=== PATIENT | male | born 1980 | race Caucasian/White ===

== ENCOUNTER 2023-05-23 11:54 | Inpatient (IN) | payer BC ==
--- NOTE | 2023-05-23 12:38 | ED ---
Abdominal Pain HPI - General Chief Complaint: Abdominal Pain Stated Complaint: Abd Pain Time Seen by Provider: 05/23/23 12:07 Source: patient, RN notes reviewed Mode of arrival: ambulatory Limitations: no limitations - History of Present Illness Initial Comments: This is a 42-year-old presents emergency department with chief complaint of right-sided abdominal pain. Symptoms have been worsening over the last few days. Patient had decreased appetite no reported fever. Pain has significantly worsened in the right lower quadrant in which initially ibuprofen was helping. No dysuria no constipation but does complain of mild diarrhea. - Related Data Allergies Allergy/AdvReac Type Severity Reaction Status Date / Time azithromycin Allergy Nausea & Verified 05/23/23 12:14 Vomiting & Diarrhea Review of Systems ROS Statement: Those systems with pertinent positive or pertinent negative responses have been documented in the HPI. ROS Other: All systems not noted in ROS Statement are negative. Past Medical History Past Medical History: No Reported History History of Any Multi-Drug Resistant Organisms: None Reported Past Surgical History: No Surgical Hx Reported Past Psychological History: Anxiety Smoking Status: Never smoker Past Alcohol Use History: Occasional Past Drug Use History: None Reported General Exam Limitations: no limitations General appearance: alert, in no apparent distress Head exam: Present: atraumatic, normocephalic, normal inspection Eye exam: Present: normal appearance, PERRL, EOMI. Absent: scleral icterus, conjunctival injection, periorbital swelling ENT exam: Present: normal exam, mucous membranes moist Neck exam: Present: normal inspection. Absent: tenderness, meningismus, lymphadenopathy Respiratory exam: Present: normal lung sounds bilaterally. Absent: respiratory distress, wheezes, rales, rhonchi, stridor Cardiovascular Exam: Present: regular rate, normal rhythm, normal heart sounds. Absent: systolic murmur, diastolic murmur, rubs, gallop, clicks GI/Abdominal exam: Present: soft, tenderness (Right lower quadrant), normal bowel sounds. Absent: distended, guarding, rebound, rigid Course Vital Signs 05/23/23 12:08 Temperature 98.2 F Pulse Rate 93 Respiratory 18 Rate Blood Pressure 134/85 O2 Sat by Pulse 98 Oximetry Medical Decision Making - Medical Decision Making Was pt. sent in by a medical professional or institution (, PA, ACOUSTICAL INSTALLER, urgent care, hospital, or detention...) When possible be specific @ -No Did you speak to anyone other than the patient for history (EMS, parent, family, police, friend...)? What history was obtained from this source @ -No Did you review nursing and triage notes (agree or disagree)? Why? @ -I reviewed and agree with nursing and triage notes Were old charts reviewed (outside hosp., previous admission, EMS record, old EKG, old radiological studies, urgent care reports/EKG's, detention records)? Report findings @ -No old charts were reviewed Differential Diagnosis (chest pain, altered mental status, abdominal pain women, abdominal pain men, vaginal bleeding, weakness, fever, dyspnea, syncope, headache, dizziness, GI bleed, back pain, seizure, CVA, palpatations, mental hea lth, musculoskeletal)? @ -Differential Abdominal Pain Men: Appendicitis, cholecystitis, diverticulosis, ischemic bowel, pancreatitis, hepatitis, UTI, gastroenteritis, AAA, incarcerated hernia, bowel obstruction, constipation, inflammatory bowel, hepatitis, peptic ulcer disease, splenic infarction, perforated viscus, testicular torsion, this is not meant to be an all-inclusive list EKG interpreted by me (3pts min.). @ -As above X-rays interpreted by me (1pt min.). @ -None done CT interpreted by me (1pt min.). @ -CT abdomen pelvis shows ruptured appendicitis with abscess U/S interpreted by me (1pt. min.). @ -None done What testing was considered but not performed or refused? (CT, X-rays, U/S, labs)? Why? @ -None What meds were considered but not given or refused? Why? @ -None Did you discuss the management of the patient with other professionals (professionals i.e. , PA, ACOUSTICAL INSTALLER, lab, RT, psych nurse, social professionals, jack setter, teacher, penal officer, family independence case manager)? Give summary @ -Dr. benoit for admission in which he recommends IV antibiotics, possible IR, medicine consult Was smoking cessation discussed for >3mins.? @ -No Was critical care preformed (if so, how long)? @ -No Were there social determinants of health that impacted care today? How? (Homelessness, low income, unemployed, alcoholism, drug addiction, transportation, low edu. Level, literacy, decrease access to med. care, alf, rehab)? @ -No Was there de-escalation of care discussed even if they declined (Discuss DNR or withdrawal of care, Hospice)? DNR status @ -No What co-morbidities impacted this encounter? (DM, HTN, Smoking, COPD, CAD, Cancer, CVA, ARF, Chemo, Hep., AIDS, mental health diagnosis, sleep apnea, morb id obesity)? @ -None Was patient admitted / discharged? Hospital course, mention meds given and rout e, prescriptions, significant lab abnormalities, going to OR and other pertinent info. @ -Admitted patient has ruptured appendicitis patient was started on Zosyn, IV antibiotics were started, blood cultures were started. Patient will be admitted for further treatment Undiagnosed new problem with uncertain prognosis? @ -No Drug Therapy requiring intensive monitoring for toxicity (Heparin, Nitro, I nsulin, Cardizem)? @ -No Were any procedures done? @ -No Diagnosis/symptom? @ -Acute appendicitis with abscess Acute, or Chronic, or Acute on Chronic? @ -Acute Uncomplicated (without systemic symptoms) or Complicated (systemic symptoms)? @ -Complicated Side effects of treatment? @ -No Exacerbation, Progression, or Severe Exacerbation? @ -No Poses a threat to life or bodily function? How? (Chest pain, USA, OR, pneumonia, PE, COPD, DKA, ARF, appy, cholecystitis, CVA, Diverticulitis, Homicidal, Richa cidal, threat to staff... and all critical care pts) @ -Yes patient has surgical risk, appendicitis - Lab Data Result diagrams: 05/23/23 12:37 05/23/23 12:37 Lab Results 05/23/23 05/23/23 05/23/23 Range/Units 12:37 12:37 12:37 WBC 17.4 H (3.8-10.6) k/uL RBC 4.96 (4.30-5.90) m/uL Hgb 14.1 (13.0-17.5) gm/dL Hct 41.1 (39.0-53.0) % MCV 82.9 (80.0-100.0) fL MCH 28.4 (25.0-35.0) pg MCHC 34.2 (31.0-37.0) g/dL RDW 12.9 (11.5-15.5) % Plt Count 463 H (150-450) k/uL MPV 7.9 Neutrophils % 80 % Lymphocytes % 10 % Monocytes % 7 % Eosinophils % 1 % Basophils % 0 % Neutrophils # 13.9 H (1.3-7.7) k/uL Lymphocytes # 1.8 (1.0-4.8) k/uL Monocytes # 1.2 H (0-1.0) k/uL Eosinophils # 0.1 (0-0.7) k/uL Basophils # 0.1 (0-0.2) k/uL Sodium 138 (137-145) mmol/L Potassium 3.6 (3.5-5.1) mmol/L Chloride 106 (98-107) mmol/L Carbon Dioxide 16 L (22-30) mmol/L Anion Gap 16 mmol/L BUN 15 (9-20) mg/dL Creatinine 0.94 (0.66-1.25) mg/dL Est GFR (CKD-EPI)AfAm >90 (>60 ml/min/1.73 sqM) Est GFR (CKD-EPI)NonAf >90 (>60 ml/min/1.73 sqM) Glucose 96 (74-99) mg/dL Plasma Lactic Acid Mick 1.2 (0.7-2.0) mmol/L Calcium 9.2 (8.4-10.2) mg/dL Total Bilirubin 1.1 (0.2-1.3) mg/dL AST 39 (17-59) U/L ALT 93 H (4-49) U/L Alkaline Phosphatase 114 (38-126) U/L Total Protein 7.5 (6.3-8.2) g/dL Albumin 4.1 (3.5-5.0) g/dL Lipase 65 (23-300) U/L Disposition Clinical Impression: Appendicitis with abscess Disposition: ADMITTED IP TO THIS HOSP Condition: Fair Referrals: Precious Siegel MD [Primary Care Provider] - 1-2 days Time of Disposition: 13:36
[2023-05-23] MEDS: SODIUM CHLORIDE 0.9% 1,000 ML IV STA (12:42)
[2023-05-23] MEDS: SODIUM CHLORIDE 0.9% 500 ML 500 ML IV STA (12:42)
[2023-05-23] MEDS: KETOROLAC 15 MG/ML 1 ML VIAL IVP STA (12:43)
[2023-05-23 13:12] LABS: Basophils # (A) 0.1 k/uL (0-0.2); Basophils % (A) 0 %; Eosinophils # (A) 0.1 k/uL (0-0.7); Eosinophils % (A) 1 %; HCT 41.1 % (39.0-53.0); HGB 14.1 gm/dL (13.0-17.5); Lymphocytes # (A) 1.8 k/uL (1.0-4.8); Lymphocytes % (A) 10 %; MCH 28.4 pg (25.0-35.0); MCHC 34.2 g/dL (31.0-37.0); MCV 82.9 fL (80.0-100.0); Mean Platelet Volume 7.9; Monocytes # (A) 1.2 k/uL (0-1.0); Monocytes % (A) 7 %; Neutrophils # (A) 13.9 k/uL (1.3-7.7); Neutrophils % (A) 80 %; Platelet Count 463 k/uL (150-450); RBC 4.96 m/uL (4.30-5.90); RDW 12.9 % (11.5-15.5); WBC 17.4 k/uL (3.8-10.6)
[2023-05-23 13:32] LABS: ALT 93 U/L (4-49); AST 39 U/L (17-59); African American GFR (CKD) >90 (>60 ml/min/1.73 sqM); Albumin 4.1 g/dL (3.5-5.0); Alkaline Phosphatase 114 U/L (38-126); Anion Gap 16 mmol/L; Blood Urea Nitrogen 15 mg/dL (9-20); Calcium 9.2 mg/dL (8.4-10.2); Carbon Dioxide 16 mmol/L (22-30); Chloride 106 mmol/L (98-107); Glucose 96 mg/dL (74-99); Lipase 65 U/L (23-300); Non-African American GFR(CKD) >90 (>60 ml/min/1.73 sqM); Potassium 3.6 mmol/L (3.5-5.1); Sodium 138 mmol/L (137-145); Total Bilirubin 1.1 mg/dL (0.2-1.3); Total Protein 7.5 g/dL (6.3-8.2)
--- NOTE | 2023-05-23 13:38 | CT ---
EXAMINATION TYPE: CT abdomen pelvis w con CT DLP: 1750.7 mGycm, Automated exposure control for dose reduction was used. DATE OF EXAM: 05/23/2023 1:11 PM COMPARISON: None CLINICAL INDICATION: 42 years old with history of RLQ pain; RLQ pain TECHNIQUE: Axial CT abdomen pelvis w con;Sagittal and coronal reformats were created on a separate w orkstation. Contrast used:100 mL of Isovue 300 with IV Contrast, (none if empty) Oral contrast used: without Oral Contrast (none if empty) FINDINGS: LOWER CHEST: Unremarkable ABDOMEN LIVER: Unremarkable GALLBLADDER AND BILE DUCTS: Unremarkable. PANCREAS: Unremarkable. SPLEEN: Unremarkable. ADRENAL GLANDS: Unremarkable. KIDNEYS AND URETERS: No evidence of hydronephrosis or renal calculus. The ureters are unremarkable. PELVIS BLADDER: Unremarkable REPRODUCTIVE: Unremarkable. ABDOMEN & PELVIS STOMACH AND BOWEL: There is a dilated appendix measuring up to 12 mm with adjacent inflammation/fat s tranding changes in the general area. Fluid collection with gas fluid level immediately next the appe ndix measuring 46 x 41 mm. PERITONEUM/RETROPERITONEUM: No evidence of pneumoperitoneum or free fluid. VASCULATURE: No evidence of aortic aneurysm. MUSCULOSKELETAL: No acute osseous abnormalities LYMPH NODES: No gross evidence for lymphadenopathy. SOFT TISSUE/ABDOMINAL WALL: Unremarkable IMPRESSION: 1. Complicated/perforated acute appendicitis with retained feces collection next to the appendix lum en measuring 4.6 x 4.1 cm. 2. Colonic diverticulosis. Findings communicated to Dr. Jadiel Jaimes, PAC on 05/23/2023 1:[address] Roberto Cox.
[2023-05-23] MEDS ORDERED: HYDROmorphone 0.5 MG/0.5 ML SYRINGE IVP PRN (14:12)
[2023-05-23] MEDS ORDERED: NALOXONE 0.4 MG/ML 1 ML VIAL IV PRN (14:12)
[2023-05-23] MEDS ORDERED: HYDROcodone/APAP 5-325MG 1 EACH TAB PO PRN (14:12)
[2023-05-23] MEDS ORDERED: ONDANSETRON 4 MG/2 ML VIAL IVP PRN (14:12)
[2023-05-23] MEDS: PIPERACILLIN-TAZOBACTAM 3.375 GM in SODIUM CHLORIDE 0.9% 100 ML IVPB SCH (14:42)
[2023-05-23] MEDS: SODIUM CHLORIDE 0.9% 1,000 ML IV SCH (14:45)
--- NOTE | 2023-05-23 15:26 | P.GSHP ---
History of Present Illness H&P Date: 05/23/23 This is a 42-year-old presents emergency department with chief complaint of right-sided abdominal pain. Symptoms have been worsening over the last few days. Patient had decreased appetite no reported fever. Pain has significantly worsened in the right lower quadrant in which initially ibuprofen was helping. No dysuria no constipation but does complain of mild diarrhea. CT-AP shows perforated appendicitis with abscess. Review of Systems ROS Statement: Those systems with pertinent positive or pertinent negative responses have been documented in the HPI. ROS Other: All systems not noted in ROS Statement are negative. Past Medical History Past Medical History: No Reported History History of Any Multi-Drug Resistant Organisms: None Reported Past Surgical History: No Surgical Hx Reported Past Psychological History: Anxiety Smoking Status: Never smoker Past Alcohol Use History: Occasional Past Drug Use History: None Reported General Exam Limitations: no limitations General appearance: alert, in no apparent distress Head exam: Present: atraumatic, normocephalic, normal inspection Eye exam: Present: normal appearance, PERRL, EOMI. Absent: scleral icterus, conjunctival injection, periorbital swelling ENT exam: Present: normal exam, mucous membranes moist Neck exam: Present: normal inspection. Absent: tenderness, meningismus, lymphadenopathy Respiratory exam: Present: normal lung sounds bilaterally. Absent: respiratory distress, wheezes, rales, rhonchi, stridor Cardiovascular Exam: Present: regular rate, normal rhythm, normal heart sounds. Absent: systolic murmur, diastolic murmur, rubs, gallop, clicks GI/Abdominal exam: Present: soft, tenderness (Right lower quadrant), normal bowel sounds. Absent: distended, guarding, rebound, rigid 42 year old with perforated appendicitis with abscess -NPO -Zosyn -IR consult for drainage. Patient will need interval appendectomy -Pain and Nausea Control -Further recs to follow Past Medical History Past Medical History: No Reported History History of Any Multi-Drug Resistant Organisms: None Reported Past Surgical History: No Surgical Hx Reported Past Psychological History: Anxiety Smoking Status: Never smoker Past Alcohol Use History: Occasional Past Drug Use History: None Reported Medications and Allergies Allergies Allergy/AdvReac Type Severity Reaction Status Date / Time azithromycin Allergy Nausea & Verified 05/23/23 12:14 Vomiting & Diarrhea Surgical - Exam Vital Signs Temp Pulse Resp BP Pulse Ox 98.2 F 93 18 134/85 98 05/23/23 12:08 05/23/23 12:08 05/23/23 12:08 05/23/23 12:08 05/23/23 12:08 Results - Labs 05/23/23 12:37 05/23/23 12:37 Abnormal Lab Results - Last 24 Hours (Table) 05/23/23 05/23/23 Range/Units 12:37 12:37 WBC 17.4 H (3.8-10.6) k/uL Plt Count 463 H (150-450) k/uL Neutrophils # 13.9 H (1.3-7.7) k/uL Monocytes # 1.2 H (0-1.0) k/uL Carbon Dioxide 16 L (22-30) mmol/L ALT 93 H (4-49) U/L Diabetes panel 05/23/23 Range/Units 12:37 Sodium 138 (137-145) mmol/L Potassium 3.6 (3.5-5.1) mmol/L Chloride 106 (98-107) mmol/L Carbon Dioxide 16 L (22-30) mmol/L BUN 15 (9-20) mg/dL Creatinine 0.94 (0.66-1.25) mg/dL Glucose 96 (74-99) mg/dL Calcium 9.2 (8.4-10.2) mg/dL AST 39 (17-59) U/L ALT 93 H (4-49) U/L Alkaline Phosphatase 114 (38-126) U/L Total Protein 7.5 (6.3-8.2) g/dL Albumin 4.1 (3.5-5.0) g/dL Calcium panel 05/23/23 Range/Units 12:37 Calcium 9.2 (8.4-10.2) mg/dL Albumin 4.1 (3.5-5.0) g/dL Pituitary panel 05/23/23 Range/Units 12:37 Sodium 138 (137-145) mmol/L Potassium 3.6 (3.5-5.1) mmol/L Chloride 106 (98-107) mmol/L Carbon Dioxide 16 L (22-30) mmol/L BUN 15 (9-20) mg/dL Creatinine 0.94 (0.66-1.25) mg/dL Glucose 96 (74-99) mg/dL Calcium 9.2 (8.4-10.2) mg/dL Adrenal panel 05/23/23 Range/Units 12:37 Sodium 138 (137-145) mmol/L Potassium 3.6 (3.5-5.1) mmol/L Chloride 106 (98-107) mmol/L Carbon Dioxide 16 L (22-30) mmol/L BUN 15 (9-20) mg/dL Creatinine 0.94 (0.66-1.25) mg/dL Glucose 96 (74-99) mg/dL Calcium 9.2 (8.4-10.2) mg/dL Total Bilirubin 1.1 (0.2-1.3) mg/dL AST 39 (17-59) U/L ALT 93 H (4-49) U/L Alkaline Phosphatase 114 (38-126) U/L Total Protein 7.5 (6.3-8.2) g/dL Albumin 4.1 (3.5-5.0) g/dL
[2023-05-23 19:37] LABS: Appearance,Urine Cloudy (Clear); Bilirubin,Urine Negative (Negative); Blood,Urine Negative (Negative); Color,Urine Yellow; Glucose,Urine (UA) Negative (Negative); Ketones,Urine 1+ (Negative); Leukocyte Esterase,Urine Negative (Negative); Mucus,Urine Few /hpf; Nitrite,Urine Negative (Negative); Protein,Urine Trace (Negative); RBC,Urine 1 /hpf (0-5); Squamous Epithelial Cell,Urine 1 /hpf (0-4); WBC,Urine 3 /hpf (0-5)
[2023-05-23] MEDS: KETOROLAC 15 MG/ML 1 ML VIAL IVP PRN (19:43)
[2023-05-23 19:48] LABS: Specific Gravity,Urine >1.050 (1.001-1.035)
[2023-05-24] MEDS: busPIRone HCl 10 MG TAB PO SCH (10:07)
[2023-05-24] MEDS: TOPIRAMATE 25 MG TAB PO SCH (11:23)
--- NOTE | 2023-05-24 12:39 | P.CONS ---
History of Present Illness - Reason for Consult Consult date: 05/24/23 Medical Management Requesting physician: Jadiel Jaimes - History of Present Illness This is a pleasant 42-year-old transgender patient medical history significant for anxiety, never smoker. Patient is currently transitioning from male to female at home medications include estradiol patch as well as Aldactone and patient states also taking testosterone. Comes in for complaints of abdominal pain and discomfort ongoing since last Thursday. Pain is significant rated about a 9 out of 10 with abdominal tenderness and not tolerating much oral intake. Pain is in the right lower quadrant. patient does not have any fever or chills. Comes to the hospital for evaluation abdominal pelvis CT was taken showing a perforated appendix with abscess formation. Was admitted to general surgery with a consult placed to medicine. Surgery has evaluated patient recommending for possible drainage of the abscess with interventional radiology and consultation has been placed. Patient is and started on IV Zosyn empirically and further recommendations are pending from surgical services. Blood cell count was elevated at 17.4 on admission, sodium 138, potassium 3.6, BUN of 15, creatinine of 0.94. Urinalysis is not suggestive of any infection. REVIEW OF SYSTEMS: CONSTITUTIONAL: No fever, no malaise, no fatigue. HEENT: No recent visual problems or hearing problems. Denied any sore throat. CARDIOVASCULAR: No chest pain, orthopnea, PND, no palpitations, no syncope. PULMONARY: No shortness of breath, no cough, no hemoptysis. GASTROINTESTINAL: No diarrhea, no nausea, no vomiting, no abdominal pain. NEUROLOGICAL: No headaches, no weakness, no numbness. HEMATOLOGICAL: Denies any bleeding or petechiae. GENITOURINARY: Denies any burning micturition, frequency, or urgency. MUSCULOSKELETAL/RHEUMATOLOGICAL: Denies any joint pain, swelling, or any muscle pain. ENDOCRINE: Denies any polyuria or polydipsia. The rest of the 14-point review of systems is negative. PHYSICAL EXAMINATION: GENERAL: The patient is alert and oriented x3, not in any acute distress. Well developed, well nourished. HEENT: Pupils are round and equally reacting to light. EOMI. No scleral icterus. No conjunctival pallor. Normocephalic, atraumatic. No pharyngeal erythema. No thyromegaly. CARDIOVASCULAR: S1 and S2 present. No murmurs, rubs, or gallops. PULMONARY: Chest is clear to auscultation, no wheezing or crackles. ABDOMEN: Soft, nontender, nondistended, normoactive bowel sounds. No palpable organomegaly. MUSCULOSKELETAL: No joint swelling or deformity. EXTREMITIES: No cyanosis, clubbing, or pedal edema. NEUROLOGICAL: Gross neurological examination did not reveal any focal deficits. SKIN: No rashes. Assessment and Plan Ruptured appendix and sepsis with abscess formation pending consultation by IR for possible drainage of the abscess continues on IV Zosyn Leukocytosis secondary to above Transgender on hormone therapy, home medication have been resumed History of anxiety on Topamax and BuSpar which have been resumed GI prophylaxis Full Code Continue empiric antibiotic coverage blood culture has been taken and pending. IR consultation in place. General surgery following closely with further recommendations patient may require surgical intervention for the ruptured appendix. Continue supportive care patient is receiving IV Toradol for pain management states this is adequate and does not want the Dilaudid at this time. She does have Dilaudid 0.5 mg every 3 hours for breakthrough pain. Recommend to repeat labs in the morning. The impression and plan of care has been dictated by Latesha Burrell Nurse Practitioner as directed. Dr. Jose MD I have performed a history and physical examination and medical decision making of this patient, discussed the same with the dictator, and agree with the dictators assessment and plan as written, documented as a scribe. Based on total visit time, I have performed more than 50% of this visit. Past Medical History Past Medical History: No Reported History History of Any Multi-Drug Resistant Organisms: None Reported Past Surgical History: No Surgical Hx Reported Past Psychological History: Anxiety Smoking Status: Never smoker Past Alcohol Use History: Occasional Past Drug Use History: None Reported Medications and Allergies Home Medications Medication Instructions Recorded Confirmed Type Multivit with Calcium,Iron,Min 1 tab PO DAILY 05/23/23 05/23/23 History [Women's Multivitamin] Phentermine HCl [Adipex P] 15 mg PO DAILY 05/23/23 05/23/23 History Spironolactone [Aldactone] 100 mg PO DAILY 05/23/23 05/23/23 History Topiramate [Topamax] 25 mg PO BID 05/23/23 05/23/23 History busPIRone HCl [Buspar] 10 mg PO BID 05/23/23 05/23/23 History estradioL 2 mg PO DAILY 05/23/23 05/23/23 History estradioL [Jacki (Twice Weekly) 1 patch TRANSDERM TUFR 05/23/23 05/23/23 History 0.1 mg Patch] Allergies Allergy/AdvReac Type Severity Reaction Status Date / Time azithromycin Allergy Nausea & Verified 05/23/23 18:12 Vomiting & Diarrhea Physical Exam Vitals: Vital Signs Temp Pulse Pulse Resp BP BP Pulse Ox 05/24/23 07:52 98.6 F 87 19 110/75 96 05/24/23 02:00 99.4 F 94 16 97/58 98 05/23/23 20:00 99.7 F 82 16 99/63 100 05/23/23 16:00 98.7 F 81 18 109/70 98 05/23/23 14:50 98.2 F 81 16 120/80 98 05/23/23 12:08 98.2 F 93 18 134/85 98 Intake and Output 05/23/23 05/24/23 05/24/23 22:59 06:59 14:59 Intake Total 0 1000 Output Total 600 Balance -600 1000 Intake: Intake, IV Titration 1000 Amount Piperacillin-Tazobactam 3 100 .375 gm In Sodium Chloride 0.9% 100 ml @ 25 mls/hr IVPB Q8H [facility]LENA Rx#: [id number] Sodium Chloride 0.9% 1, 900 000 ml @ 75 mls/hr IV . [id number] [facility] ELENA Rx#:[id number] Oral 0 0 Output: Urine 600 Other: # Voids 2 1 Weight 120.656 kg Results CBC & Chem 7: 05/23/23 12:37 05/23/23 12:37 Labs: Abnormal Lab Results - Last 24 Hours (Table) 05/23/23 05/23/23 05/23/23 Range/Units 12:37 12:37 12:37 WBC 17.4 H (3.8-10.6) k/uL Plt Count 463 H (150-450) k/uL Neutrophils # 13.9 H (1.3-7.7) k/uL Monocytes # 1.2 H (0-1.0) k/uL Carbon Dioxide 16 L (22-30) mmol/L ALT 93 H (4-49) U/L Ur Specific [place] >1.050 H (1.001-1.035) Urine Protein Trace H (Negative) Urine Ketones 1+ H (Negative) Assessment and Plan Time with Patient: Less than 30
[2023-05-24] MEDS: MULTIVITAMINS, THERA 1 EACH TAB PO SCH (14:06)
[2023-05-24] MEDS: SPIRONOLACTONE 25 MG TAB PO SCH (14:06)
--- NOTE | 2023-05-24 15:40 | P.PN ---
Subjective Progress Note Date: 05/24/23 Julien is a 42-year-old transgender male to female who presents with lower abdominal pain from Thursday through Thursday. Patient presents with ruptured appendicitis with abscess. At this time, pending consultation for interventional radiology drainage. Complains of thirst. May have clear liquid diet. N.p.o. after midnight. Adjustment of medications for nonnarcotic pain management of Toradol scheduled. Tylenol scheduled. Dilaudid as needed. Interval appendectomy also described. Objective - Vital Signs Vital signs: Vital Signs Temp 100.1 F 05/24/23 14:18 Pulse 84 05/24/23 14:18 Resp 18 05/24/23 14:18 BP 106/67 05/24/23 14:18 Pulse Ox 97 05/24/23 14:18 FiO2 Intake & Output 05/23/23 05/24/23 05/24/23 18:59 06:59 18:59 Intake Total 0 1000 Output Total 600 Balance -600 1000 Weight 120.656 kg Intake: Intake, IV Titration 1000 Amount Piperacillin-Tazobactam 3 100 .375 gm In Sodium Chloride 0.9% 100 ml @ 25 mls/hr IVPB Q8H [facility] ELENA Rx#: [id number] Sodium Chloride 0.9% 1, 900 000 ml @ 75 mls/hr IV . [id number] [facility] ELE[facility] Rx#:[id number] Oral 0 0 Output: Urine 600 Other: # Voids 2 1 - Labs CBC & Chem 7: 05/23/23 12:37 05/23/23 12:37 Labs: Abnormal Lab Results - Last 24 Hours (Table) 05/23/23 Range/Units 12:37 Ur Specific [place] >1.050 H (1.001-1.035) Urine Protein Trace H (Negative) Urine Ketones 1+ H (Negative)
[2023-05-24] MEDS: KETOROLAC 15 MG/ML 1 ML VIAL IVP SCH (18:07)
[2023-05-24] MEDS: SODIUM CHLORIDE 0.9% 1,000 ML IV SCH (18:07)
[2023-05-24] MEDS: ACETAMINOPHEN TAB 500 MG TAB PO SCH (18:08)
[2023-05-25 08:29] LABS: HCT 38.2 % (37.2-50.0); HGB 12.8 g/dL (12.0-17.0); MCH 28.1 pg (27.0-32.0); MCHC 33.5 g/dL (32.0-37.0); MCV 83.8 FL (80.0-97.0); Mean Platelet Volume 9.9 FL (9.5-12.2); NRBC Per 100 WBC 0 X 10*3/uL (0.00-0.01); Platelet Count 465 X 10*3/uL (140-440); RBC 4.56 X 10*6/uL (4.10-5.60); RDW 13.2 % (11.5-14.5); WBC 17.29 X 10*3/uL (4.50-10.00)
[2023-05-25 08:30] LABS: Blood Urea Nitrogen 12.7 mg/dL (9.0-27.0); Calcium 8.4 mg/dL (8.7-10.3); Carbon Dioxide 19.5 mmol/L (21.6-31.8); Chloride 104 mmol/L (96-109); Glucose 92 mg/dL (70-110); Potassium 3.8 mmol/L (3.5-5.5); Sodium 135 mmol/L (135-145)
[2023-05-25] MEDS: estradioL 1 MG TAB PO SCH (08:52)
[2023-05-25 09:23] LABS: INR 1.1 (<1.2); Prothrombin Time 12.1 sec (10.0-12.5)
[2023-05-25 09:48] LABS: Basophils # (A) 0.12 X 10*3/uL (0.00-0.10); Basophils % (A) 0.7 %; Eosinophils # (A) 0.19 X 10*3/uL (0.04-0.35); Eosinophils % (A) 1.1 %; Lymphocytes # (A) 1.71 X 10*3/uL (0.90-5.00); Lymphocytes % (A) 9.9 %; Monocytes # (A) 1.69 X 10*3/uL (0.20-1.00); Monocytes % (A) 9.8 %; Neutrophils # (A) 13.48 X 10*3/uL (1.80-7.70); Neutrophils % (A) 77.9 %; RBC Morphology Normal (Normal)
[2023-05-25] MEDS: HYDROmorphone 1 MG/ML 1 ML SYRINGE IVP PRN (10:02)
--- NOTE | 2023-05-25 12:47 | CT ---
INDICATION: Patient age:Unknown; 42 years old; Reason for study: abdominal drainage possible drainage tube placemen; ATTENDING: Roberto Cox D.O. PROCEDURE: DLP administered was [address] localizer images were taken which showed safest allowable access to the right paracolic gu tter fluid collection. The patient was prepped, draped in the usual sterile fashion, and locally ane sthetized. A needle was used to access the fluid collection with return of bloody purulent fluid. Ov er 0.038 Bentson guidewire exchange an 8.5 togolese pig tail catheter was placed. Approximately 120 mL of purulent fluid was drained with sample sent to the lab for analysis. A vacuu m drainage bag was then attached the catheter. There was no blood loss and post-procedure hemostasis was achieved. The patient tolerated the procedure well without complication. Patient was transferr ed to the general medical floor in stable condition. IMPRESSION: CT guided placement of a percutaneous pigtail drainage catheter in the right paracolic gutter.
--- NOTE | 2023-05-25 14:53 | P.PN ---
Subjective Progress Note Date: 05/25/23 - Reason for Consult Consult date: 05/24/23 Medical Management Requesting physician: Jadiel Jaimes - History of Present Illness This is a pleasant 42-year-old transgender patient medical history significant for anxiety, never smoker. Patient is currently transitioning from male to female at home medications include estradiol patch as well as Aldactone and patient states also taking testosterone. Comes in for complaints of abdominal pain and discomfort ongoing since last Thursday. Pain is significant rated about a 9 out of 10 with abdominal tenderness and not tolerating much oral intake. Pain is in the right lower quadrant. patient does not have any fever or chills. Comes to the hospital for evaluation abdominal pelvis CT was taken showing a perforated appendix with abscess formation. Was admitted to general surgery with a consult placed to medicine. Surgery has evaluated patient recommending for possible drainage of the abscess with interventional radiology and consultation has been placed. Patient is and started on IV Zosyn empirically and further recommendations are pending from surgical services. Blood cell count was elevated at 17.4 on admission, sodium 138, potassium 3.6, BUN of 15, creatinine of 0.94. Urinalysis is not suggestive of any infection. 05/25/2023 . Patient is seen and evaluated in follow-up today currently scheduled to be evaluated by interventional radiology for possible abscess drainage. General surgery following maintained on antibiotics while awaiting possible drain to be placed for abscess. Patient is currently n.p.o. and is afebrile with no reports of chest pain or shortness of breath. Patient does endorse some abdominal tenderness on the right. Patient with no reports of nausea or vomiting and not much of an appetite noted. Patient has been encouraged to increase activity as tolerated Review of systems: Constitutional: No reports of fatigue, fever, or chills Cardiovascular: No reports of chest pain or palpitations Respiratory: No reports of shortness of breath or cough GI: reports of occasional nausea, no vomiting, or diarrhea, reports continued abdominal pain on the right : No reports of dysuria or retention Neurovascular: No reports of weakness or numbness All medications have been reviewed The rest of the 14-point review of systems is negative. PHYSICAL EXAMINATION: GENERAL: The patient is alert and oriented x3, not in any acute distress. Well developed, well nourished. Morbidly obese HEENT: Pupils are round and equally reacting to light. EOMI. No scleral icterus. No conjunctival pallor. Normocephalic, atraumatic. No pharyngeal erythema. No thyromegaly. CARDIOVASCULAR: S1 and S2 present. No murmurs, rubs, or gallops. PULMONARY: Chest is clear to auscultation, no wheezing or crackles. ABDOMEN: Soft, obese, tender on palpation on the right, nondistended, normoactive bowel sounds. No palpable organomegaly. MUSCULOSKELETAL: No joint swelling or deformity. EXTREMITIES: No cyanosis, clubbing, or pedal edema. NEUROLOGICAL: Gross neurological examination did not reveal any focal deficits. SKIN: No rashes. Assessment: Ruptured appendix and sepsis with abscess formation pending consultation by IR for possible drainage of the abscess continues on IV Zosyn Leukocytosis secondary to above Transgender on hormone therapy, home medication have been resumed History of anxiety on Topamax and BuSpar which have been resumed Morbid obesity with a BMI of 40.4 GI prophylaxis DVT prophylaxis Full Code Plan: Continue empiric antibiotic coverage blood culture has been taken and pending. IR consultation in place. With plans of possible drainage placement and abscess drainage, currently pending for today General surgery following closely with further recommendations patient may require surgical intervention for the ruptured appendix. Awaiting evaluation from interventional radiology prior to surgical intervention. Continue supportive care patient is receiving IV Toradol for pain management states this is adequate and does not want the Dilaudid at this time. She does have Dilaudid 0.5 mg every 3 hours for breakthrough pain. Follow-up with repeat labs in the morning. And will await interventional radiology report Thank you kindly for this consultation. We will continue to follow with general surgery during hospitalization The impression and plan of care has been dictated by Marta Renee, Nurse Practitioner as directed. Dr. Jose MD I have performed a history and physical examination and medical decision making of this patient, discussed the same with the dictator, and agree with the dictators assessment and plan as written, documented as a scribe. Based on total visit time, I have performed more than 50% of this visit. Objective - Vital Signs Vital signs: Vital Signs Temp 98.3 F 05/25/23 07:16 Pulse 78 05/25/23 12:25 Resp 16 05/25/23 11:40 BP 117/71 05/25/23 12:25 Pulse Ox 96 05/25/23 12:25 FiO2 Intake & Output 05/24/23 05/25/23 05/25/23 18:59 06:59 18:59 Intake Total 1080 Balance 1080 Intake: Oral 1080 Other: Voiding Method Toilet Urinal # Voids 1 2 - Labs CBC & Chem 7: 05/25/23 06:10 05/25/23 06:10 Labs: Abnormal Lab Results - Last 24 Hours (Table) 05/25/23 05/25/23 Range/Units 06:10 06:10 WBC 17.29 H (4.50-10.00) X 10*3/uL Plt Count 465 H (140-440) X 10*3/uL Immature Gran # 0.10 H (0.00-0.04) X 10*3/uL Neutrophils # 13.48 H (1.80-7.70) X 10*3/uL Monocytes # 1.69 H (0.20-1.00) X 10*3/uL Basophils # 0.12 H (0.00-0.10) X 10*3/uL Carbon Dioxide 19.5 L (21.6-31.8) mmol/L Calcium 8.4 L (8.7-10.3) mg/dL Microbiology - Last 24 Hours (Table) 05/23/23 14:20 Blood Culture - Preliminary Blood 05/23/23 14:35 Blood Culture - Preliminary Blood
--- NOTE | 2023-05-25 15:31 | P.PN ---
Subjective Progress Note Date: 05/25/23 CHIEF COMPLAINT: Abdominal pain HISTORY OF PRESENT ILLNESS: Patient is status post interventional radiology CT- guided drain placement for appendicitis with abscess. 120 mL purulent fluid was drained per IR report. Patient reports pain is controlled. Afebrile. PHYSICAL EXAM: VITAL SIGNS: Reviewed GENERAL: Well-developed in no acute distress. HEENT: No sclera icterus. Extraocular movements grossly intact. Moist buccal mucosa. Head is atraumatic, normocephalic. Hears conversational speech. No nasal drainage. NECK: Supple without lymphadenopathy. CHEST: Non-labored respirations and equal bilateral excursions. CARDIOVASCULAR: Palpable 2+ radial pulses. ABDOMEN: Soft. Nondistended. Nontender. MUSCULOSKELETAL: No clubbing or cyanosis. NEUROLOGIC: No focal or lateralizing signs. Cranial nerves II through XII grossly intact. PSYCH: Appropriate affect. Alert and oriented to person, place and time. SKIN: Well perfused. Good skin turgor. ASSESSMENT: 1. Acute ruptured appendicitis with abscess status post CT-guided drain placement PLAN: -Continue drainage of abscess -Antibiotics per infectious disease -Resume clear liquid diet -Repeat CBC in a.m. -Continue pain management Physician Account Manager Employee [employer] note has been reviewed by physician. Signing provider agrees with the documented findings, assessment, and plan of care. Objective - Vital Signs Vital signs: Vital Signs Temp 98.3 F 05/25/23 07:16 Pulse 78 05/25/23 12:25 Resp 16 05/25/23 11:40 BP 117/71 05/25/23 12:25 Pulse Ox 96 05/25/23 12:25 FiO2 Intake & Output 05/24/23 05/25/23 05/25/23 18:59 06:59 18:59 Intake Total 1080 Balance 1080 Intake: Oral 1080 Other: Voiding Method Toilet Urinal # Voids 1 2 - Labs CBC & Chem 7: 05/25/23 06:10 05/25/23 06:10 Labs: Abnormal Lab Results - Last 24 Hours (Table) 05/25/23 05/25/23 Range/Units 06:10 06:10 WBC 17.29 H (4.50-10.00) X 10*3/uL Plt Count 465 H (140-440) X 10*3/uL Immature Gran # 0.10 H (0.00-0.04) X 10*3/uL Neutrophils # 13.48 H (1.80-7.70) X 10*3/uL Monocytes # 1.69 H (0.20-1.00) X 10*3/uL Basophils # 0.12 H (0.00-0.10) X 10*3/uL Carbon Dioxide 19.5 L (21.6-31.8) mmol/L Calcium 8.4 L (8.7-10.3) mg/dL Microbiology - Last 24 Hours (Table) 05/23/23 14:20 Blood Culture - Preliminary Blood 05/23/23 14:35 Blood Culture - Preliminary Blood
[2023-05-25 16:18] LABS: Appearance,BF Turbid (Clear)
[2023-05-26 11:10] LABS: Basophils # (A) 0.07 X 10*3/uL (0.00-0.10); Basophils % (A) 0.5 %; Eosinophils # (A) 0.19 X 10*3/uL (0.04-0.35); Eosinophils % (A) 1.4 %; HCT 38.6 % (37.2-50.0); HGB 12.6 g/dL (12.0-17.0); Lymphocytes # (A) 1.81 X 10*3/uL (0.90-5.00); Lymphocytes % (A) 13.4 %; MCH 28.2 pg (27.0-32.0); MCHC 32.6 g/dL (32.0-37.0); MCV 86.4 FL (80.0-97.0); Monocytes # (A) 0.91 X 10*3/uL (0.20-1.00); Monocytes % (A) 6.7 %; NRBC Per 100 WBC 0 X 10*3/uL (0.00-0.01); Neutrophils # (A) 10.48 X 10*3/uL (1.80-7.70); Neutrophils % (A) 77.6 %; Platelet Count 488 X 10*3/uL (140-440); RBC 4.47 X 10*6/uL (4.10-5.60); RDW 13.2 % (11.5-14.5); WBC 13.51 X 10*3/uL (4.50-10.00)
[2023-05-26] MEDS: ESTRADIOL TRANSDERM SCH ×2 (11:52→21:55)
--- NOTE | 2023-05-26 12:45 | P.PN ---
Subjective Progress Note Date: 05/26/23 This is a pleasant 42-year-old transgender patient medical history significant for anxiety, never smoker. Patient is currently transitioning from male to female at home medications include estradiol patch as well as Aldactone and patient states also taking testosterone. Comes in for complaints of abdominal pain and discomfort ongoing since last Thursday. Pain is significant rated about a 9 out of 10 with abdominal tenderness and not tolerating much oral intake. Pain is in the right lower quadrant. patient does not have any fever or chills. Comes to the hospital for evaluation abdominal pelvis CT was taken showing a perforated appendix with abscess formation. Was admitted to general surgery ks th a consult placed to medicine. Surgery has evaluated patient recommending for possible drainage of the abscess with interventional radiology and consultation has been placed. Patient is and started on IV Zosyn empirically and further recommendations are pending from surgical services. Blood cell count was elevated at 17.4 on admission, sodium 138, potassium 3.6, BUN of 15, creatinine of 0.94. Urinalysis is not suggestive of any infection. 05/25/2023 . Patient is seen and evaluated in follow-up today currently scheduled to be evaluated by interventional radiology for possible abscess drainage. General surgery following maintained on antibiotics while awaiting possible drain to be placed for abscess. Patient is currently n.p.o. and is afebrile with no reports of chest pain or shortness of breath. Patient does endorse some abdominal tenderness on the right. Patient with no reports of nausea or vomiting and not much of an appetite noted. Patient has been encouraged to increase activity as tolerated 05/26/2023 Patient is seen and evaluated today in follow-up patient underwent CT-guided drainage of the abdominal abscess with placement of drainage tube. Patient had 140 mL of output during the procedure and there is an additional 150 mL of purulent brown drainage in the bag. Aspirate is showing gram-negative bacilli patient continues on empiric antibiotic coverage with IV Zosyn. White blood cell count today is 13.51. Hemodynamically she is stable. Review of systems: Constitutional: No reports of fatigue, fever, or chills Cardiovascular: No reports of chest pain or palpitations Respiratory: No reports of shortness of breath or cough GI: reports of occasional nausea, no vomiting, or diarrhea, reports continued abdominal pain on the right : No reports of dysuria or retention Neurovascular: No reports of weakness or numbness All medications have been reviewed The rest of the 14-point review of systems is negative. PHYSICAL EXAMINATION: GENERAL: The patient is alert and oriented x3, not in any acute distress. Well developed, well nourished. Morbidly obese HEENT: Pupils are round and equally reacting to light. EOMI. No scleral icterus. No conjunctival pallor. Normocephalic, atraumatic. No pharyngeal erythema. No thyromegaly. CARDIOVASCULAR: S1 and S2 present. No murmurs, rubs, or gallops. PULMONARY: Chest is clear to auscultation, no wheezing or crackles. ABDOMEN: Soft, obese, tender on palpation on the right, nondistended, normoactive bowel sounds. No palpable organomegaly. MUSCULOSKELETAL: No joint swelling or deformity. EXTREMITIES: No cyanosis, clubbing, or pedal edema. NEUROLOGICAL: Gross neurological examination did not reveal any focal deficits. SKIN: No rashes. Assessment: Ruptured appendix and sepsis with abscess formation s/p drainage by IR with drainage tube present preliminary cultures are showing gram-negative bacilli patient remains on IV Zosyn Leukocytosis secondary to above Transgender on hormone therapy, home medication have been resumed History of anxiety on Topamax and BuSpar which have been resumed Morbid obesity with a BMI of 40.4 GI prophylaxis DVT prophylaxis Full Code Plan: Continue empiric antibiotic coverage abscess drainage preliminary culture showing gram-negative bacilli ID was consulted for further management of antibiotic therapy. General surgery following closely with further recommendations patient may require surgical intervention for the ruptured appendix. Continue supportive care patient is receiving IV Toradol for pain management states this is adequate and does not want the Dilaudid at this time. She does have Dilaudid 0.5 mg every 3 hours for breakthrough pain. Follow-up with repeat labs in the morning. And will await interventional radiology report Thank you kindly for this consultation. We will continue to follow with general surgery during hospitalization The impression and plan of care has been dictated by Latesha Burrell Nurse Practitioner as directed. Dr. Jose MD I have performed a history and physical examination and medical decision making of this patient, discussed the same with the dictator, and agree with the dictators assessment and plan as written, documented as a scribe. Based on total visit time, I have performed more than 50% of this visit. Objective - Vital Signs Vital signs: Vital Signs Temp 97.6 F 02/27/24 08:03 Pulse 76 05/26/23 08:03 Resp 16 05/26/23 08:03 BP 120/67 05/26/23 08:03 Pulse Ox 98 05/26/23 08:03 FiO2 Intake & Output 05/25/23 05/26/23 05/26/23 18:59 06:59 18:59 Intake Total 1700 Balance 1700 Intake: Intake, IV Titration 1100 Amount Piperacillin-Tazobactam 3 200 .375 gm In Sodium Chloride 0.9% 100 ml @ 25 mls/hr IVPB Q8H [facility] Rx#: [id number] Sodium Chloride 0.9% 1, 900 000 ml @ 130 mls/hr IV . Q7H42M [facility] Rx#:[id number] Oral 600 Other: Voiding Method Toilet Toilet Urinal # Voids 1 # Bowel Movements 1 - Labs CBC & Chem 7: 05/26/23 06:44 05/25/23 06:10 Labs: Abnormal Lab Results - Last 24 Hours (Table) 05/25/23 05/26/23 Range/Units 11:25 06:44 WBC 13.51 H (4.50-10.00) X 10*3/uL Plt Count 488 H (140-440) X 10*3/uL Immature Gran # 0.05 H (0.00-0.04) X 10*3/uL Neutrophils # 10.48 H (1.80-7.70) X 10*3/uL Fluid Appearance Turbid A (Clear) Microbiology - Last 24 Hours (Table) 05/25/23 11:25 Gram Stain - Preliminary Aspirate Body Fluid Culture - Preliminary Gram Neg Bacilli 05/23/23 14:20 Blood Culture - Preliminary Blood 05/23/23 14:35 Blood Culture - Preliminary Blood Assessment and Plan Time with Patient: Less than 30
--- NOTE | 2023-05-26 14:45 | P.PN ---
Subjective Progress Note Date: 05/26/23 CHIEF COMPLAINT: Abdominal pain HISTORY OF PRESENT ILLNESS: Patient complains of abdominal pain. But reports it is controlled. Denies any nausea or vomiting. Requesting increase in diet. Afebrile. WBC down from 17 to 13.5 Hgb 12.6 platelets 488 culture growing gram- negative bacilli PHYSICAL EXAM: VITAL SIGNS: Reviewed GENERAL: Well-developed in no acute distress. HEENT: No sclera icterus. Extraocular movements grossly intact. Moist buccal mucosa. Head is atraumatic, normocephalic. Hears conversational speech. No nasal drainage. NECK: Supple without lymphadenopathy. CHEST: Non-labored respirations and equal bilateral excursions. CARDIOVASCULAR: Palpable 2+ radial pulses. ABDOMEN: Soft. Nondistended. Drain with purulent drainage MUSCULOSKELETAL: No clubbing or cyanosis. NEUROLOGIC: No focal or lateralizing signs. Cranial nerves II through XII grossly intact. PSYCH: Appropriate affect. Alert and oriented to person, place and time. SKIN: Well perfused. Good skin turgor. ASSESSMENT: 1. Acute ruptured appendicitis with abscess status post CT-guided drain placement PLAN: -Continue CT-guided drain -Antibiotics per infectious disease -Advance diet to full liquids -Repeat CBC in a.m. -Continue pain management Physician Senior Product Development Scientist note has been reviewed by physician. Signing provider agrees with the documented findings, assessment, and plan of care. Objective - Vital Signs Vital signs: Vital Signs Temp 98 F 05/26/23 12:42 Pulse 68 05/26/23 12:42 Resp 16 05/26/23 12:42 BP 113/61 05/26/23 12:42 Pulse Ox 94 05/26/23 12:42 FiO2 Intake & Output 05/25/23 05/26/23 05/26/23 18:59 06:59 18:59 Intake Total 1700 Balance 1700 Intake: Intake, IV Titration 1100 Amount Piperacillin-Tazobactam 3 200 .375 gm In Sodium Chloride 0.9% 100 ml @ 25 mls/hr IVPB Q8H [facility] Rx#: [id number] Sodium Chloride 0.9% 1, 900 000 ml @ 130 mls/hr IV . Q7H42M [facility] Rx#:[id number] Oral 600 Other: Voiding Method Toilet Toilet Urinal # Voids 1 # Bowel Movements 1 - Labs CBC & Chem 7: 05/26/23 06:44 05/25/23 06:10 Labs: Abnormal Lab Results - Last 24 Hours (Table) 05/25/23 05/26/23 Range/Units 11:25 06:44 WBC 13.51 H (4.50-10.00) X 10*3/uL Plt Count 488 H (140-440) X 10*3/uL Immature Gran # 0.05 H (0.00-0.04) X 10*3/uL Neutrophils # 10.48 H (1.80-7.70) X 10*3/uL Fluid Appearance Turbid A (Clear) Microbiology - Last 24 Hours (Table) 05/25/23 11:25 Gram Stain - Preliminary Aspirate Body Fluid Culture - Preliminary Gram Neg Bacilli 05/23/23 14:20 Blood Culture - Preliminary Blood 05/23/23 14:35 Blood Culture - Preliminary Blood
--- NOTE | 2023-05-26 22:55 | P.CONS ---
History of Present Illness - Reason for Consult Consult date: 05/26/23 - History of Present Illness Patient is a 42-year-old person with a past medical history significant for anxiety presenting to the hospital 3 days ago for evaluation of right-sided abdominal pain patient symptom has been getting worse for few days before presentation to the hospital patient describes the pain to be sharp almost 10 out of 10 in severity without any radiation, did have associated nausea but no vomiting no diarrhea or constipation with the symptoms the patient has been evaluated on presentation to the hospital patient was afebrile patient did have 1 low-grade fever 100.1 on 05/24/2023 patient was nontachycardic hypertensive or hypoxic did have a white count of 17.4 with a left shift kidney function was normal ALT is elevated rest of the liver enzymes are normal urine was negative patient did have a abdominal pelvis CT that was suggestive of complicated perforated acute appendicitis with retained feces collection next to the appendix measuring 4.6X 4.1 cm patient is status post CT-guided drainage of this abscess culture has been obtained patient was started on Zosyn infectious disease was consulted today for further management of antibiotic therapy Past Medical History Past Medical History: No Reported History History of Any Multi-Drug Resistant Organisms: None Reported Past Surgical History: No Surgical Hx Reported Past Psychological History: Anxiety Smoking Status: Never smoker Past Alcohol Use History: Occasional Past Drug Use History: None Reported Medications and Allergies Home Medications Medication Instructions Recorded Confirmed Type Multivit with Calcium,Iron,Min 1 tab PO DAILY 05/23/23 05/23/23 History [Women's Multivitamin] Phentermine HCl [Adipex P] 15 mg PO DAILY 05/23/23 05/23/23 History Spironolactone [Aldactone] 100 mg PO DAILY 05/23/23 05/23/23 History Topiramate [Topamax] 25 mg PO BID 05/23/23 05/23/23 History busPIRone HCl [Buspar] 10 mg PO BID 05/23/23 05/23/23 History estradioL 2 mg PO DAILY 05/23/23 05/23/23 History estradioL [Jacki (Twice Weekly) 1 patch TRANSDERM TUFR 05/23/23 05/23/23 History 0.1 mg Patch] Allergies Allergy/AdvReac Type Severity Reaction Status Date / Time azithromycin Allergy Nausea & Verified 05/23/23 18:12 Vomiting & Diarrhea Physical Exam Vitals: Vital Signs Temp Pulse Resp BP Pulse Ox 05/26/23 08:03 97.6 F 76 16 120/67 98 05/26/23 07:15 98.3 F 72 16 126/67 98 05/26/23 01:17 98.1 F 81 18 94/53 97 05/25/23 12:25 78 117/71 96 05/25/23 12:11 86 101/57 96 05/25/23 11:55 81 113/73 96 05/25/23 11:40 79 16 122/67 96 Intake and Output 05/25/23 05/26/23 05/26/23 22:59 06:59 14:59 Intake Total 240 1460 Balance 240 1460 Intake: Intake, IV Titration 1100 Amount Piperacillin-Tazobactam 3 200 .375 gm In Sodium Chloride 0.9% 100 ml @ 25 mls/hr IVPB Q8H [facility] Rx#: [id number] Sodium Chloride 0.9% 1, 900 000 ml @ 130 mls/hr IV . Q7H42M [facility] Rx#:[id number] Oral 240 360 Other: Voiding Method Toilet Urinal # Voids 1 # Bowel Movements 1 Results CBC & Chem 7: 05/26/23 06:44 05/25/23 06:10 Labs: Abnormal Lab Results - Last 24 Hours (Table) 05/25/23 05/26/23 Range/Units 11:25 06:44 WBC 13.51 H (4.50-10.00) X 10*3/uL Plt Count 488 H (140-440) X 10*3/uL Immature Gran # 0.05 H (0.00-0.04) X 10*3/uL Neutrophils # 10.48 H (1.80-7.70) X 10*3/uL Fluid Appearance Turbid A (Clear) Microbiology - Last 24 Hours (Table) 05/25/23 11:25 Gram Stain - Preliminary Aspirate Body Fluid Culture - Preliminary Gram Neg Bacilli 05/23/23 14:20 Blood Culture - Preliminary Blood 05/23/23 14:35 Blood Culture - Preliminary Blood Assessment and Plan Plan: 1patient presented to hospital with sepsis in this patient who did have a low- grade fever elevated white count source is complicated acute appendicitis with perforation and periappendicular abscess likely organism need to cover will be the enteric gram-negative both anaerobes and anaerobes in this patient who is status post CT-guided drainage with the cultures currently pending 2-Zosyn 3.375 g every 8 hours should provide adequate antibiotic coverage while waiting for the culture to finalize 3-discharge antibiotic depend upon the final culture and clinical response Multiple question concern answered We will follow on clinical condition and cultures to further adjust medication if needed Thank you for this consultation we will follow the patient along with you Dictation was produced using [employer] dictation software. please excuse any grammatical, word or spelling errors. Time with Patient: Greater than 30
[2023-05-27 11:27] LABS: Basophils # (A) 0.05 X 10*3/uL (0.00-0.10); Basophils % (A) 0.5 %; Eosinophils # (A) 0.27 X 10*3/uL (0.04-0.35); Eosinophils % (A) 2.7 %; HCT 33.9 % (37.2-50.0); HGB 11.1 g/dL (12.0-17.0); MCHC 32.7 g/dL (32.0-37.0); MCV 85.4 FL (80.0-97.0); NRBC Per 100 WBC 0 X 10*3/uL (0.00-0.01); Neutrophils # (A) 7.26 X 10*3/uL (1.80-7.70); Neutrophils % (A) 72.4 %; Platelet Count 440 X 10*3/uL (140-440); RBC 3.97 X 10*6/uL (4.10-5.60); RDW 13.2 % (11.5-14.5); WBC 10.02 X 10*3/uL (4.50-10.00)
--- NOTE | 2023-05-27 13:09 | P.PN ---
Subjective Progress Note Date: 05/27/23 This is a pleasant 42-year-old transgender patient medical history significant for anxiety, never smoker. Patient is currently transitioning from male to female at home medications include estradiol patch as well as Aldactone and patient states also taking testosterone. Comes in for complaints of abdominal pain and discomfort ongoing since last Thursday. Pain is significant rated about a 9 out of 10 with abdominal tenderness and not tolerating much oral intake. Pain is in the right lower quadrant. patient does not have any fever or chills. Comes to the hospital for evaluation abdominal pelvis CT was taken showing a perforated appendix with abscess formation. Was admitted to general surgery wi th a consult placed to medicine. Surgery has evaluated patient recommending for possible drainage of the abscess with interventional radiology and consultation has been placed. Patient is and started on IV Zosyn empirically and further recommendations are pending from surgical services. Blood cell count was elevated at 17.4 on admission, sodium 138, potassium 3.6, BUN of 15, creatinine of 0.94. Urinalysis is not suggestive of any infection. 05/25/2023 . Patient is seen and evaluated in follow-up today currently scheduled to be evaluated by interventional radiology for possible abscess drainage. General surgery following maintained on antibiotics while awaiting possible drain to be placed for abscess. Patient is currently n.p.o. and is afebrile with no reports of chest pain or shortness of breath. Patient does endorse some abdominal tenderness on the right. Patient with no reports of nausea or vomiting and not much of an appetite noted. Patient has been encouraged to increase activity as tolerated 05/26/2023 Patient is seen and evaluated today in follow-up patient underwent CT-guided drainage of the abdominal abscess with placement of drainage tube. Patient had 140 mL of output during the procedure and there is an additional 150 mL of purulent brown drainage in the bag. Aspirate is showing gram-negative bacilli patient continues on empiric antibiotic coverage with IV Zosyn. White blood cell count today is 13.51. Hemodynamically she is stable. 05/27/2023 Patient seen in follow-up today drainage tube remains in place with minimal output overnight. Cultures have finalized showing E. coli. Patient reports abdominal discomfort is improved rating it a 1 out of 10 currently. She is tolerating diet. Continues on IV fluids. ID following for discharge antibiotic recommendations. Patient will follow-up outpatient for appendectomy with general surgery. Review of systems: Constitutional: No reports of fatigue, fever, or chills Cardiovascular: No reports of chest pain or palpitations Respiratory: No reports of shortness of breath or cough GI: reports of occasional nausea, no vomiting, or diarrhea, reports continued abdominal pain on the right : No reports of dysuria or retention Neurovascular: No reports of weakness or numbness All medications have been reviewed The rest of the 14-point review of systems is negative. PHYSICAL EXAMINATION: GENERAL: The patient is alert and oriented x3, not in any acute distress. Well developed, well nourished. Morbidly obese HEENT: Pupils are round and equally reacting to light. EOMI. No scleral icterus. No conjunctival pallor. Normocephalic, atraumatic. No pharyngeal erythema. No thyromegaly. CARDIOVASCULAR: S1 and S2 present. No murmurs, rubs, or gallops. PULMONARY: Chest is clear to auscultation, no wheezing or crackles. ABDOMEN: Soft, obese, tender on palpation on the right, nondistended, norm oactive bowel sounds. No palpable organomegaly. MUSCULOSKELETAL: No joint swelling or deformity. EXTREMITIES: No cyanosis, clubbing, or pedal edema. NEUROLOGICAL: Gross neurological examination did not reveal any focal deficits. SKIN: No rashes. Assessment: Ruptured appendix and sepsis with abscess formation s/p drainage by IR with drainage tube present, culture showing E. coli with ID following for discharge antibiotic recommendations. Leukocytosis secondary to above Transgender on hormone therapy, home medication have been resumed History of anxiety on Topamax and BuSpar which have been resumed Morbid obesity with a BMI of 40.4 GI prophylaxis DVT prophylaxis Full Code Plan: Continue empiric antibiotic coverage abscess drainage culture showing E.Coli, ID to recommend discharge antibiotics. . General surgery following closely with further recommendations patient may require surgical intervention for the ruptured appendix - this will be done on an outpatient basis. Continue supportive care patient is receiving IV Toradol for pain management states this is adequate and does not want the Dilaudid at this time. She does have Dilaudid 0.5 mg every 3 hours for breakthrough pain. Thank you kindly for this consultation. We will continue to follow with general surgery during hospitalization The impression and plan of care has been dictated by Nurse Kamran Prac titioner as directed. Dr. Jose MD I have performed a history and physical examination and medical decision making of this patient, discussed the same with the dictator, and agree with the dictators assessment and plan as written, documented as a scribe. Based on total visit time, I have performed more than 50% of this visit. Objective - Vital Signs Vital signs: Vital Signs Temp 98.3 F 05/27/23 07:41 Pulse 66 05/27/23 07:41 Resp 16 05/27/23 07:41 BP 107/71 05/27/23 07:41 Pulse Ox 97 05/27/23 07:41 FiO2 Intake & Output 05/26/23 05/27/23 05/27/23 18:59 06:59 18:59 Intake Total 960 Balance 960 Intake: Intake, IV Titration 720 Amount Piperacillin-Tazobactam 3 200 .375 gm In Sodium Chloride 0.9% 100 ml @ 25 mls/hr IVPB Q8H [facility] Rx#: [id number] Sodium Chloride 0.9% 1, 520 000 ml @ 130 mls/hr IV . Q7H42M [facility] Rx#:[id number] Oral 240 Other: Voiding Method Toilet Toilet Toilet # Voids 1 - Labs CBC & Chem 7: 05/27/23 07:00 05/25/23 06:10 Labs: Abnormal Lab Results - Last 24 Hours (Table) 05/27/23 Range/Units 07:00 WBC 10.02 H (4.50-10.00) X 10*3/uL RBC 3.97 L (4.10-5.60) X 10*6/uL Hgb 11.1 L (12.0-17.0) g/dL Hct 33.9 L (37.2-50.0) % Microbiology - Last 24 Hours (Table) 05/25/23 11:25 Gram Stain - Preliminary Aspirate Body Fluid Culture - Preliminary Escherichia coli 05/23/23 14:20 Blood Culture - Preliminary Blood 05/23/23 14:35 Blood Culture - Preliminary Blood Assessment and Plan Time with Patient: Less than 30
--- NOTE | 2023-05-27 13:28 | P.PN ---
Subjective Progress Note Date: 05/27/23 CHIEF COMPLAINT: Abdominal pain HISTORY OF PRESENT ILLNESS: Patient reports less abdominal pain today. Denies any nausea or vomiting. Tolerating full liquid diet. Having bowel movements. Afebrile. WBC down from 13-10.02 Hgb 11.1 cultures growing E. coli PHYSICAL EXAM: VITAL SIGNS: Reviewed GENERAL: Well-developed in no acute distress. HEENT: No sclera icterus. Extraocular movements grossly intact. Moist buccal mucosa. Head is atraumatic, normocephalic. Hears conversational speech. No nasal drainage. NECK: Supple without lymphadenopathy. CHEST: Non-labored respirations and equal bilateral excursions. CARDIOVASCULAR: Palpable 2+ radial pulses. ABDOMEN: Soft. Nondistended. Drain with purulent drainage MUSCULOSKELETAL: No clubbing or cyanosis. NEUROLOGIC: No focal or lateralizing signs. Cranial nerves II through XII grossly intact. PSYCH: Appropriate affect. Alert and oriented to person, place and time. SKIN: Well perfused. Good skin turgor. ASSESSMENT: 1. Acute ruptured appendicitis with abscess status post CT-guided drain placement PLAN: -Continue CT-guided drain -Antibiotics per infectious disease. Awaiting culture to finalize -Continue full liquids -Repeat CBC in a.m. -Continue pain management -Plan for interval appendectomy Physician [employer] Window [employer]airer note has been reviewed by physician. Signing provider agrees with the documented findings, assessment, and plan of care. Objective - Vital Signs Vital signs: Vital Signs Temp 98.3 F 05/27/23 07:41 Pulse 66 05/27/23 07:41 Resp 16 05/27/23 07:41 BP 107/71 05/27/23 07:41 Pulse Ox 97 05/27/23 07:41 FiO2 Intake & Output 05/26/23 05/27/23 05/27/23 18:59 06:59 18:59 Intake Total 960 Balance 960 Intake: Intake, IV Titration 720 Amount Piperacillin-Tazobactam 3 200 .375 gm In Sodium Chloride 0.9% 100 ml @ 25 mls/hr IVPB Q8H [facility] Rx#: [id number] Sodium Chloride 0.9% 1, 520 000 ml @ 130 mls/hr IV . Q7H42M [facility] Rx#:[id number] Oral 240 Other: Voiding Method Toilet Toilet Toilet # Voids 1 - Labs CBC & Chem 7: 02/28/24 07:00 05/25/23 06:10 Labs: Abnormal Lab Results - Last 24 Hours (Table) 05/27/23 Range/Units 07:00 WBC 10.02 H (4.50-10.00) X 10*3/uL RBC 3.97 L (4.10-5.60) X 10*6/uL Hgb 11.1 L (12.0-17.0) g/dL Hct 33.9 L (37.2-50.0) % Microbiology - Last 24 Hours (Table) 05/25/23 11:25 Gram Stain - Preliminary Aspirate Body Fluid Culture - Preliminary Escherichia coli 05/23/23 14:20 Blood Culture - Preliminary Blood 05/23/23 14:35 Blood Culture - Preliminary Blood
--- NOTE | 2023-05-28 07:14 | P.PN ---
Subjective Progress Note Date: 05/27/23 Principal diagnosis: Reason for follow-up is perforated appendicitis intra-abdominal abscess Patient is a 42-year-old person with a past medical history significant for anxiety presenting to the hospital for evaluation of right-sided abdominal pain, patient has been diagnosed with perforated appendicitis with periumbilical abscess in this patient who is status post CT-guided drainage of this abscess. On today's evaluation that is 05/27/2023, the patient continues to be afebrile, the patient is on room air and breathing comfortably, the Pt denies having any chest pain or cough, the patient denies nausea vomiting abdominal pain has decreased in intensity minimal output in the drainage catheter. Patient white count is 13.5 abdominal culture grew E. coli with resistance to pathogen Objective - Vital Signs Vital signs: Vital Signs Temp 98.3 F 05/27/23 07:41 Pulse 66 05/27/23 07:41 Resp 16 05/27/23 07:41 BP 107/71 05/27/23 07:41 Pulse Ox 97 05/27/23 07:41 FiO2 Intake & Output 05/26/23 05/27/23 05/27/23 18:59 06:59 18:59 Intake Total 960 Balance 960 Intake: Intake, IV Titration 720 Amount Piperacillin-Tazobactam 3 200 .375 gm In Sodium Chloride 0.9% 100 ml @ 25 mls/hr IVPB Q8H [facility] Rx#: [id number] Sodium Chloride 0.9% 1, 520 000 ml @ 130 mls/hr IV . Q7H42M [facility] Rx#:[id number] Oral 240 Other: Voiding Method Toilet Toilet Toilet # Voids 1 - Exam GENERAL DESCRIPTION: Middle-age male lying in bed in no distress RESPIRATORY SYSTEM: Unlabored breathing , decreased breath sounds at bases HEART: S1 S2 regular rate and rhythm , ABDOMEN: Soft , no tenderness minimal purulent drainage in the drainage catheter EXTREMITIES: No edema feet - Labs CBC & Chem 7: 05/27/23 07:00 05/25/23 06:10 Labs: Abnormal Lab Results - Last 24 Hours (Table) 05/27/23 Range/Units 07:00 WBC 10.02 H (4.50-10.00) X 10*3/uL RBC 3.97 L (4.10-5.60) X 10*6/uL Hgb 11.1 L (12.0-17.0) g/dL Hct 33.9 L (37.2-50.0) % Microbiology - Last 24 Hours (Table) 05/25/23 11:25 Gram Stain - Preliminary Aspirate Body Fluid Culture - Preliminary Escherichia coli 05/23/23 14:20 Blood Culture - Preliminary Blood 05/23/23 14:35 Blood Culture - Preliminary Blood Assessment and Plan (1) Appendicitis with abscess Current Visit: Yes Status: Acute Code(s): K35.33 - AC APPENDICITIS WITH PERF, LOC PERITONITIS, AND GANGR, WBSCS SNOMED Code(s): 21066278 Plan: 1patient presented to hospital with sepsis in this patient who did have a low- grade fever elevated white count source is complicated acute appendicitis with perforation and periappendicular abscess likely organism need to cover will be the enteric gram-negative both anaerobes and anaerobes in this patient who is status post CT-guided drainage with the cultures currently growing E. coli that is a sensitive pathogen 2-patient to continue with Zosyn 3.375 g every 8 hours, white count still elevated and monitor clinical course closely Dictation was produced using [employer] dictation software. please excuse any grammatical, word or spelling errors. Time with Patient: Less than 30
--- NOTE | 2023-05-28 12:05 | P.PN ---
Subjective Progress Note Date: 05/28/23 Principal diagnosis: Reason for follow-up is perforated appendicitis intra-abdominal abscess Patient is a 42-year-old person with a past medical history significant for anxiety presenting to the hospital for evaluation of right-sided abdominal pain, patient has been diagnosed with perforated appendicitis with periumbilical abscess in this patient who is status post CT-guided drainage of this abscess. On today's evaluation that is 05/28/2023, Patient is afebrile patient is cu rrently on room air and denies having any shortness of breath, the patient denies any chest pain or cough, the patient denies any nausea vomiting did not have any abdominal pain and no diarrhea, feeling better wants to go home. Patient white count is 10.02 abdominal culture with the E. coli and strep viridans Objective - Vital Signs Vital signs: Vital Signs Temp 97.9 F 05/28/23 07:44 Pulse 81 05/28/23 07:44 Resp 17 05/28/23 07:44 BP 117/71 05/28/23 07:44 Pulse Ox 98 05/28/23 07:44 FiO2 Intake & Output 05/27/23 05/28/23 05/28/23 18:59 06:59 18:59 Intake Total 590 Output Total 50 Balance -50 590 Intake: Oral 590 Output: Drainage 50 Right Abdomen 50 Other: Voiding Method Toilet Toilet Toilet # Voids 4 2 # Bowel Movements 2 - Exam GENERAL DESCRIPTION: Middle-age male lying in bed in no distress RESPIRATORY SYSTEM: Unlabored breathing , decreased breath sounds at bases HEART: S1 S2 regular rate and rhythm , ABDOMEN: Soft , no tenderness minimal purulent drainage in the drainage catheter EXTREMITIES: No edema feet - Labs CBC & Chem 7: 05/27/23 07:00 05/25/23 06:10 Labs: Microbiology - Last 24 Hours (Table) 05/25/23 11:25 Gram Stain - Final Aspirate Body Fluid Culture - Final Escherichia coli Viridans streptococcus group Assessment and Plan (1) Appendicitis with abscess Current Visit: Yes Status: Acute Code(s): K35.33 - AC APPENDICITIS WITH PERF, LOC PERITONITIS, AND GANGR, WBSCS SNOMED Code(s): 93771455 Plan: 1patient presented to hospital with sepsis in this patient who did have a low- grade fever elevated white count source is complicated acute appendicitis with perforation and periappendicular abscess likely organism need to cover will be the enteric gram-negative both anaerobes and anaerobes in this patient who is status post CT-guided drainage with the cultures currently growing E. coli that is a sensitive pathogen 2-patient to continue with Zosyn 3.375 g every 8 hours, the patient white count has normalized plan is to finish therapy with oral Cipro and Flagyl x 2 weeks on discharge discussed with the DISEASE INTERVENTION SPECIALIST for admitting team Dictation was produced using [email or web address] dictation software. please excuse any grammatical, word or spelling errors. Time with Patient: Less than 30
--- NOTE | 2023-05-28 13:50 | P.PN ---
Subjective Progress Note Date: 05/28/23 This is a pleasant 42-year-old transgender patient medical history significant for anxiety, never smoker. Patient is currently transitioning from male to female at home medications include estradiol patch as well as Aldactone and patient states also taking testosterone. Comes in for complaints of abdominal pain and discomfort ongoing since last Thursday. Pain is significant rated about a 9 out of 10 with abdominal tenderness and not tolerating much oral intake. Pain is in the right lower quadrant. patient does not have any fever or chills. Comes to the hospital for evaluation abdominal pelvis CT was taken showing a perforated appendix with abscess formation. Was admitted to general surgery wi th a consult placed to medicine. Surgery has evaluated patient recommending for possible drainage of the abscess with interventional radiology and consultation has been placed. Patient is and started on IV Zosyn empirically and further recommendations are pending from surgical services. Blood cell count was elevated at 17.4 on admission, sodium 138, potassium 3.6, BUN of 15, creatinine of 0.94. Urinalysis is not suggestive of any infection. 05/25/2023 . Patient is seen and evaluated in follow-up today currently scheduled to be evaluated by interventional radiology for possible abscess drainage. General surgery following maintained on antibiotics while awaiting possible drain to be placed for abscess. Patient is currently n.p.o. and is afebrile with no reports of chest pain or shortness of breath. Patient does endorse some abdominal tenderness on the right. Patient with no reports of nausea or vomiting and not much of an appetite noted. Patient has been encouraged to increase activity as tolerated 05/26/2023 Patient is seen and evaluated today in follow-up patient underwent CT-guided drainage of the abdominal abscess with placement of drainage tube. Patient had 140 mL of output during the procedure and there is an additional 150 mL of purulent brown drainage in the bag. Aspirate is showing gram-negative bacilli patient continues on empiric antibiotic coverage with IV Zosyn. White blood cell count today is 13.51. Hemodynamically she is stable. 05/27/2023 Patient seen in follow-up today drainage tube remains in place with minimal output overnight. Cultures have finalized showing E. coli. Patient reports abdominal discomfort is improved rating it a 1 out of 10 currently. She is tolerating diet. Continues on IV fluids. ID following for discharge antibiotic recommendations. Patient will follow-up outpatient for appendectomy with general surgery. 05/28/2023 Patient is seen in follow-up today she is having increased drainage from the right-sided drainage tube. Cultures are showing E. coli and infectious disease is recommending 2 weeks of oral Cipro on discharge. Patient states that she is not having any further episodes of abdominal pain she is currently still on a full liquid diet and would like to try to tolerate more solid foods prior to dis charge. General surgery recommending to follow-up outpatient for appendectomy. Medically this patient is stable and could be continued sitter for discharge if cleared by surgery. Review of systems: Constitutional: No reports of fatigue, fever, or chills Cardiovascular: No reports of chest pain or palpitations Respiratory: No reports of shortness of breath or cough GI: reports of occasional nausea, no vomiting, or diarrhea, reports continued abdominal pain on the right : No reports of dysuria or retention Neurovascular: No reports of weakness or numbness All medications have been reviewed The rest of the 14-point review of systems is negative. PHYSICAL EXAMINATION: GENERAL: The patient is alert and oriented x3, not in any acute distress. Well developed, well nourished. Morbidly obese HEENT: Pupils are round and equally reacting to light. EOMI. No scleral icterus. No conjunctival pallor. Normocephalic, atraumatic. No pharyngeal erythema. No thyromegaly. CARDIOVASCULAR: S1 and S2 present. No murmurs, rubs, or gallops. PULMONARY: Chest is clear to auscultation, no wheezing or crackles. ABDOMEN: Soft, obese, tender on palpation on the right, nondistended, normoactive bowel sounds. No palpable organomegaly. Manage tube in place to the right lower quadrant with milky brown drainage noted MUSCULOSKELETAL: No joint swelling or deformity. EXTREMITIES: No cyanosis, clubbing, or pedal edema. NEUROLOGICAL: Gross neurological examination did not reveal any focal deficits. SKIN: No rashes. Assessment: Ruptured appendix and sepsis with abscess formation s/p drainage by IR with drainage tube present, culture showing E. coli with ID following for discharge antibiotic recommendations. Leukocytosis secondary to above Transgender on hormone therapy, home medication have been resumed History of anxiety on Topamax and BuSpar which have been resumed Morbid obesity with a BMI of 40.4 GI prophylaxis DVT prophylaxis Full Code Plan: Continue empiric antibiotic coverage abscess drainage culture showing E.Coli ID recommending to discharge on oral cipro. General surgery following closely with further recommendations patient may require surgical intervention for the ruptured appendix - this will be done on an outpatient basis. Continue pain management and bowel regimen Thank you kindly for this consultation. We will continue to follow with general surgery during hospitalization The impression and plan of care has been dictated by Nurse Kamran Prac titioner as directed. Dr. Jose MD I have performed a history and physical examination and medical decision making of this patient, discussed the same with the dictator, and agree with the dictators assessment and plan as written, documented as a scribe. Based on total visit time, I have performed more than 50% of this visit. Objective - Vital Signs Vital signs: Vital Signs Temp 97.8 F 05/28/23 13:34 Pulse 54 05/28/23 13:34 Resp 19 05/28/23 13:34 BP 112/73 05/28/23 13:34 Pulse Ox 99 05/28/23 13:34 FiO2 Intake & Output 05/27/23 05/28/23 05/28/23 18:59 06:59 18:59 Intake Total 590 Output Total 50 Balance -50 590 Intake: Oral 590 Output: Drainage 50 Right Abdomen 50 Other: Voiding Method Toilet Toilet Toilet # Voids 4 2 # Bowel Movements 2 - Labs CBC & Chem 7: 05/27/23 07:00 05/25/23 06:10 Labs: Microbiology - Last 24 Hours (Table) 05/25/23 11:25 Anaerobic Culture - Preliminary Aspirate Anaerobic Gm Negative Bacilli 05/25/23 11:25 Gram Stain - Final Aspirate Body Fluid Culture - Final Escherichia coli Viridans streptococcus group
[2023-05-28 13:51] VITALS: BP 112/73; PULSE 54; RESP 19; TEMP 97.8
--- NOTE | 2023-05-28 14:17 | P.DS ---
Providers Date of admission: 05/23/23 13:38 Expected date of discharge: 05/28/23 Attending physician: Rangel Anton DO Consults: 05/23/23 14:12 Consult Physician Urgent Consulting Provider: Nicko Thacker Consult Reason/Comments: medical management Do you want consulting provider notified?: Yes 05/25/23 07:41 Consult Physician Routine Consulting Provider: Laura Palomino Consult Reason/Comments: Appendicitis Do you want consulting provider notified?: Already Contacted 05/26/23 08:52 Consult Physician Routine Consulting Provider: Kalie Francois Consult Reason/Comments: appendicitis with abscess Do you want consulting provider notified?: Yes Primary care physician: Precious [facility] Hospital Course: Discharge diagnosis 1. Acute ruptured appendicitis with abscess status post CT-guided drain placement Hospital course This is a 42-year-old who presented with right-sided lower quadrant abdominal pain and decreased appetite. CT scan abdomen and pelvis had reported a perforated appendicitis with abscess. Patient is status post CT-guided drain placement. Patient followed by infectious disease. They are recommending oral antibiotics for 2 weeks at discharge. Patient reports pain is controlled. Tolerating diet. Afebrile. Has been up and ambulating. There has been decreased purulent drainage from the drainage tube. Patient will be discharged with the drain. Patient is stable for discharge. Patient has been cleared by consulting physicians. Physician Water Meter Mechanic note has been reviewed by physician. Signing provider agrees with the documented findings, assessment, and plan of care. Patient Condition at Discharge: Stable Plan - Discharge Summary Discharge Rx Participant: No New Discharge Prescriptions: New Ciprofloxacin HCl [Cipro] 500 mg PO BID 14 Days #28 tab Acetaminophen Tab [Tylenol] 1,000 mg PO Q6HR PRN #30 tablet PRN Reason: Pain Acetaminophen Tab [Tylenol] 1,000 mg PO Q6HR tab metroNIDAZOLE [Flagyl] 500 mg PO TID #42 tab Ibuprofen [Motrin] 600 mg PO Q8HR PRN #30 tab PRN Reason: Pain Continue Spironolactone [Aldactone] 100 mg PO DAILY estradioL [Jacki (Twice Weekly) 0.1 mg Patch] 1 patch TRANSDERM TUFR estradioL 2 mg PO DAILY Multivit with Calcium,Iron,Min [Women's Multivitamin] 1 tab PO DAILY Topiramate [Topamax] 25 mg PO BID busPIRone HCl [Buspar] 10 mg PO BID Phentermine HCl [Adipex P] 15 mg PO DAILY Discharge Medication List Multivit with Calcium,Iron,Min [Women's Multivitamin] 1 tab PO DAILY 05/23/23 [History] Phentermine HCl [Adipex P] 15 mg PO DAILY 05/23/23 [History] Spironolactone [Aldactone] 100 mg PO DAILY 05/23/23 [History] Topiramate [Topamax] 25 mg PO BID 05/23/23 [History] busPIRone HCl [Buspar] 10 mg PO BID 05/23/23 [History] estradioL 2 mg PO DAILY 05/23/23 [History] estradioL [Jacki (Twice Weekly) 0.1 mg Patch] 1 patch TRANSDERM TUFR 05/23/23 [History] Acetaminophen Tab [Tylenol] 1,000 mg PO Q6HR tab 05/28/23 [Rx] Acetaminophen Tab [Tylenol] 1,000 mg PO Q6HR PRN #30 tablet 05/28/23 [Rx] Ciprofloxacin HCl [Cipro] 500 mg PO BID 14 Days #28 tab 05/28/23 [Rx] Ibuprofen [Motrin] 600 mg PO Q8HR PRN #30 tab 05/28/23 [Rx] metroNIDAZOLE [Flagyl] 500 mg PO TID #42 tab 05/28/23 [Rx] Follow up Appointment(s)/Referral(s): Laura Palomino MD [STAFF PHYSICIAN] - 06/02/23 3:30 pm Precious Siegel MD [Primary Care Provider] - 1-2 days Kalie Francois MD [STAFF PHYSICIAN] - 2 Weeks Ambulatory/Diagnostic Orders: Complete Blood Count w/diff [LAB.AMB] Time Frame: 3 Days, Location: None Selected Activity/Diet/Wound Care/Special Instructions: Continue low fiber diet Continue Tylenol and Motrin as needed for pain control Discharge Disposition: HOME SELF-CARE
== END 2023-05-28 15:41 | disposition home or self-care (01) | DRG 871 ==
LOC: EDSEX → EC 11:54 → 5NMEDONC 13:38
PROVIDERS: ADMIT Surgery; ATTEND Surgery
PROC: 0D9J30Z Drainage of Appendix with Drainage Device, Percutaneous Approach (ICD-10-PCS; principal; 2023-05-25)
DX: A40.8 Other streptococcal sepsis (principal); K35.33 Acute appendicitis with perforation, localized peritonitis, and gangrene, with abscess; R65.20 Severe sepsis without septic shock; F64.0 Transsexualism; F41.9 Anxiety disorder, unspecified; Z79.890 Hormone replacement therapy
CPT/HCPCS: 36415; 74177; 75989; 80048; 80053; 81001; 83605; 83690; 85025; 85610; 87040; 87070; 87075; 87077; 87186; 87205; 88108; 88305; 89050; 96361; 96374; 99285

== ENCOUNTER 2023-06-01 11:21 | Day surgery (SDC) | payer BC ==
[2023-06-01 13:08] VITALS: BP 128/74; PULSE 80; RESP 16; TEMP 98.1
== END 2023-06-01 12:59 | disposition home or self-care (01) ==
LOC: RADPROMAIN 11:21 → EDSEX 12:30 → RADPROMAIN 12:59
PROVIDERS: ATTEND Radiology Body Imaging
DX: Z48.01 Encounter for change or removal of surgical wound dressing (principal)
CPT/HCPCS: 99213

== ENCOUNTER 2023-06-08 10:40 | Day surgery (SDC) | payer BC ==
[2023-06-08 12:21] VITALS: BP 134/78; PULSE 74; RESP 18; TEMP 98
== END 2023-06-08 12:09 | disposition home or self-care (01) ==
LOC: EDSEX → RADPROMAIN 10:40
PROVIDERS: ATTEND Radiology Body Imaging
DX: Z48.01 Encounter for change or removal of surgical wound dressing (principal)
CPT/HCPCS: 99213

== ENCOUNTER → 2023-06-10 | Outpatient (CLI) | payer BC ==
--- NOTE | 2023-06-10 13:25 | CT ---
EXAMINATION: CT ABDOMEN AND PELVIS WITH IV CONTRAST DATE OF EXAMINATION: 06/10/2023. COMPARISON: None available. INDICATION: History of appendicitis. PROCEDURE: Axial CT of the abdomen and pelvis was performed with contrast and sagittal and coronal reformatted images were performed. CT dose lowering techniques were used, to include: automated expos ure control, adjustment for patient size, and/or use of iterative reconstruction. 100 mL of Isovue 30 0 was given intravenously. FINDINGS: LOWER CHEST : The visualized lung bases are clear. There are no pleural or pericardial effusions. ABDOMEN: Liver and Biliary system: Normal. Adrenal glands: Normal. Kidneys and ureters: Normal. Spleen: Normal. Pancreas: Normal. Gallbladder: Normal. Lymph nodes, Peritoneum and mesentery: There is no mesenteric or retroperitoneal lymphadenopathy. Gastrointestinal tract: There are no dilated loops of bowel or free intraperitoneal air. There is some stranding in the right lower quadrant with a pigtail catheter seen within that region. No drain able fluid collection or abscess is seen. There appears to be a portion of the appendix visualized. T here is mild descending colonic and sigmoid colonic diverticulosis without evidence of diverticulitis . Aorta/IVC: No aortic aneurysm. IVC normal. Abdominal wall: Normal. PELVIS: Fluid: There is no free fluid in the pelvis. Lymph Nodes: There is no pelvic or inguinal lymphadenopathy.. Urinary bladder: Normal. BONES: There are no osseous destructive lesions.. ADDITIONAL SIGNIFICANT FINDINGS: None. IMPRESSION: 1. Pigtail catheter in the right lower quadrant with resolution of the abscess. There is no residual fluid collection remaining. 2. Diverticulosis without evidence of diverticulitis.
== END | disposition home or self-care (01) ==
LOC: EDSEX → RADCTMAIN 09:54
PROVIDERS: ATTEND Internal Medicine Infectious Disease
DX: K36 Other appendicitis (principal); K57.30 Diverticulosis of large intestine without perforation or abscess without bleeding
CPT/HCPCS: 74177; Q9967

== ENCOUNTER 2023-06-15 12:38 | Day surgery (SDC) | payer BC ==
[2023-06-15 13:28] VITALS: BP 137/82; PULSE 64; RESP 18; TEMP 97.2
== END 2023-06-15 13:40 | disposition home or self-care (01) ==
LOC: EDSEX → RADPROMAIN 12:38
PROVIDERS: ATTEND Radiology Body Imaging
DX: K35.33 Acute appendicitis with perforation, localized peritonitis, and gangrene, with abscess (principal)
CPT/HCPCS: 99213

== ENCOUNTER 2023-07-10 09:57 | Day surgery (SDC) | payer BC ==
[2023-07-08 13:07] VITALS: BMI 37.9
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
[~2023-07-10 09:57] MED LIST: HYDROmorphone 0.5 MG/0.5 ML SYRINGE IVP PRN; MIDAZOLAM 2 MG/2 ML VIAL IV PRN; metroNIDAZOLE-NS PMX 500 MG in SALINE 1 100ML.BAG IVPB PRN
[2023-07-10] MEDS: LACTATED RINGERS 1,000 ML IV SCH (10:31)
[2023-07-10] MEDS: MELOXICAM 7.5 MG TAB PO PRN (10:31)
[2023-07-10] MEDS: ACETAMINOPHEN TAB 500 MG TAB PO PRN (10:31)
[2023-07-10] MEDS: ONDANSETRON 4 MG/2 ML VIAL IVP PRN (10:32)
[2023-07-10] MEDS: DEXAMETHASONE SOD PHOSPHATE 4 MG/ML 1 ML VIAL IVP ONE (10:32)
[2023-07-10 10:51] VITALS: RESP 16
[2023-07-10 10:56] LABS: Basophils # (A) 0.1 k/uL (0-0.2); Basophils % (A) 1 %; Eosinophils # (A) 0.2 k/uL (0-0.7); Eosinophils % (A) 2 %; HGB 13.6 gm/dL (11.4-16.0); Lymphocytes # (A) 1.4 k/uL (1.0-4.8); Lymphocytes % (A) 15 %; MCHC 33.1 g/dL (31.0-37.0); MCV 84.4 fL (80.0-100.0); Mean Platelet Volume 7.4; Monocytes # (A) 0.7 k/uL (0-1.0); Monocytes % (A) 7 %; Neutrophils # (A) 6.9 k/uL (1.3-7.7); Neutrophils % (A) 74 %; Platelet Count 334 k/uL (150-450); RBC 4.86 m/uL (3.80-5.40); RDW 12.9 % (11.5-15.5); WBC 9.4 k/uL (3.8-10.6)
[2023-07-10] MEDS: FAMOTIDINE 20 MG/2 ML VIAL IVP ONE (11:05)
[2023-07-10] MEDS: HEPARIN SODIUM,PORCINE 5,000 UNIT/ML 1 ML VIAL SQ PRN (11:05)
[2023-07-10 11:09] LABS: ALT 40 U/L (4-34); AST 27 U/L (14-36); African American GFR (CKD) >90 (>60 ml/min/1.73 sqM); Albumin 4.2 g/dL (3.5-5.0); Alkaline Phosphatase 63 U/L (38-126); Anion Gap 8 mmol/L; Blood Urea Nitrogen 13 mg/dL (7-17); Calcium 8.8 mg/dL (8.4-10.2); Carbon Dioxide 21 mmol/L (22-30); Chloride 108 mmol/L (98-107); Glucose 92 mg/dL (74-99); Non-African American GFR(CKD) >90 (>60 ml/min/1.73 sqM); Potassium 4.2 mmol/L (3.5-5.1); Sodium 137 mmol/L (137-145); Total Bilirubin 0.7 mg/dL (0.2-1.3); Total Protein 7.3 g/dL (6.3-8.2)
[2023-07-10] MEDS ORDERED: LIDOCAINE 1% INJ 10MG/ML (20 ML MDV) ONE (12:00)
[2023-07-10] MEDS ORDERED: fentaNYL (PF) 50 MCG/ML 2 ML AMP ONE (12:00)
[2023-07-10] MEDS ORDERED: SUCCINYLCHOLINE CHLORIDE 200 MG/10 ML VIAL IV ONE (12:00)
[2023-07-10] MEDS: LIDOCAINE 1%-EPI 1:100,000 20 ML VIAL SQ ONE (12:00)
[2023-07-10] MEDS ORDERED: PROPOFOL 10 MG/ML 20 ML VIAL IV ONE (12:00)
[2023-07-10] MEDS ORDERED: NEOSTIGMINE 1 MG/ML 10 ML VIAL ONE (12:00)
[2023-07-10] MEDS ORDERED: MIDAZOLAM 2 MG/2 ML VIAL ONE (12:00)
[2023-07-10] MEDS ORDERED: GLYCOPYRROLATE 0.2 MG/ML 2 ML VIAL ONE (12:00)
[2023-07-10] MEDS ORDERED: ROCURONIUM 10 MG/ML (5 ML VIAL) IV ONE (12:00)
[2023-07-10] MEDS ORDERED: HYDROmorphone (PF) 1 MG/ML ONE (12:00)
[2023-07-10 13:39] VITALS: TEMP 97.2
--- NOTE | 2023-07-10 13:43 | P.OP ---
Date of Procedure: 07/10/23 Description of Procedure: SURGEON: LAURA PALOMINO MD Preoperative Diagnosis: 1. Ruptured appendicitis with phlegmon 2. Morbid obesity due to excess calories, BMI 38.7 3. Depressive disorder 4. Hypertensive heart disease 5. Generalized anxiety disorder 6. Dissociative identity disorder 7. Posttraumatic stress disorder Postoperative Diagnosis: 1. Acute appendicitis, retrocecal with periappendicitis 2. Morbid obesity due to excess calories, BMI 38.7 3. Depressive disorder 4. Hypertensive heart disease 5. Generalized anxiety disorder 6. Dissociative identity disorder 7. Posttraumatic stress disorder 8. Pelvic adhesions Procedure(s) Performed: 1. Robotic-assisted daVinci Xi laparoscopic appendectomy 2. Robotic-assisted daVinci Xi laparoscopic lysis of adhesions over 50% of the case Anesthesia: GETA, local Estimated Blood Loss (ml): 5 Pathology: other (appendix) Condition: stable Disposition: floor Operative Findings: 1. Acute appendicitis with previous rupture and phlegmon resolved with moderate right pelvic adhesions, lysed 2. Terminal ileum unremarkable 3. Cecum unremarkable INDICATIONS: The patient is a 42-year-old transgender female who presents with previous ruptured appendicitis and phlegmon. Prolonged antibiotics including drainage was performed over 4 to 6 weeks ago. She presents today for appendectomy. Benefits and risks, including infection, open surgery, and bleeding for additional surgery was discussed at length. Informed consent was obtained. All questions of the patient and family were answered. DESCRIPTION: The patient was transferred to the operating room and placed in supine position. The patient had previously voided. The abdomen was then prepped and draped in standard sterile fashion as Ioban was placed along the abdomen to minimize any contamination of skin floor. After a timeout protocol was performed, attention was then brought to the left upper quadrant whereby a 0 degree 5 mm laparoscopic trocar entry was performed. The abdominal cavity was entered and insufflated to 12 mmHg pressure, which was tolerated well. Diagnostic laparoscopy demonstrated no injury to bowel, viscera or mesentery. Next a robotic 8-mm trocar was placed along the left lower quadrant, 10-cm lateral to the midline. A 12 mm port was placed along the left upper quadrant and another 8-mm port left lateral abdominal wall. Ports were placed 8 cm apart from each other including 15-20 cm away from the target anatomy of the right pelvis. The patient was then placed in Trendelenburg position, at least 14 down and right side up at least 7. The robotic da Crystal XI system was primed and docked from the left side of the patient. Using atraumatic graspers and vessel sealer, the robotic system was docked and primed as described. Instruments were interchanged by the child development assistant including graspers, robotic stapler and vessel sealer. Next, attention was brought to identify the cecum. A systematic view within the abdominal cavity was started with the small bowel which was unremarkable. The base of the cecum was unremarkable. The appendix was retrocecal coursing towards right upper quadrant behind the ascending colon with additional dissection required. Moderate pelvic adhesions from recent rupture was dissected using vessel sealer, blunt dissection. Bleeding was controlled with sponges and vessel sealer. The body of the appendix was moderately dilated with moderate periappendicitis. No perforation was identified. The appendix was dissected free from its surrounding tissues. Lysis of adhesions over 50% of the case was performed. White 45 mm robotic staple loads were fired along the base of the appendix. The staple line was hemostatic. Hemostasis was checked prior to undocking the robot. The robot was undocked. I re-scrubbed into the case. The specimen was removed from the abdominal cavity with an Endo Catch bag through the 12 mm trocar at the left upper quadrant. All instruments and pneumoperitoneum were evacuated from the abdominal cavity. Local anesthetic was infiltrated to all wounds for postop analgesia. All incisions were also cleansed with diluted hydrogen peroxide. The incisions were closed with 4-0 Monocryl. Exofin glue was applied to the rest of the skin incisions. The patient had tolerated the procedure well. The patient was extubated successfully. The patient was transferred to the postanesthesia care unit in stable condition. Plan - Discharge Summary Discharge Rx Participant: No New Discharge Prescriptions: New Ibuprofen [Motrin] 600 mg PO Q8HR PRN #30 tab PRN Reason: Pain Acetaminophen Tab [Tylenol Tab] 1,000 mg PO Q6HR PRN #30 tablet PRN Reason: Pain Simethicone [Gas-X] 125 mg PO AC-TID PRN #20 capsule PRN Reason: Pain Continue Spironolactone [Aldactone] 100 mg PO QAM estradioL [Jacki (Twice Weekly) 0.1 mg Patch] 2 patch TRANSDERM Q3D estradioL 2 mg PO DAILY Multivit with Calcium,Iron,Min [Women's Multivitamin] 1 dose PO DAILY Topiramate [Topamax] 25 mg PO QAM busPIRone HCl [Buspar] 10 mg PO QAM Phentermine HCl [Adipex P] 15 mg PO QAM Acetaminophen Tab [Tylenol] 1,000 mg PO Q6HR tab Ibuprofen [Motrin] 600 mg PO Q8HR PRN #30 tab PRN Reason: Pain [place]-3/Dha/Epa/Fish Oil [Fish Oil 1,000 mg Softgel] 2 each PO DAILY Discharge Medication List Multivit with Calcium,Iron,Min [Women's Multivitamin] 1 dose PO DAILY 05/23/23 [History] Phentermine HCl [Adipex P] 15 mg PO QAM 05/23/23 [History] Spironolactone [Aldactone] 100 mg PO QAM 05/23/23 [History] Topiramate [Topamax] 25 mg PO QAM 05/23/23 [History] busPIRone HCl [Buspar] 10 mg PO QAM 05/23/23 [History] estradioL 2 mg PO DAILY 05/23/23 [History] estradioL [Jacki (Twice Weekly) 0.1 mg Patch] 2 patch TRANSDERM Q3D 05/23/23 [History] Acetaminophen Tab [Tylenol] 1,000 mg PO Q6HR tab 05/28/23 [Rx] Ibuprofen [Motrin] 600 mg PO Q8HR PRN #30 tab 05/28/23 [Rx] [place]-3/Dha/Epa/Fish Oil [Fish Oil 1,000 mg Softgel] 2 each PO DAILY 07/08/23 [History] Acetaminophen Tab [Tylenol Tab] 1,000 mg PO Q6HR PRN #30 tablet 07/10/23 [Rx] Ibuprofen [Motrin] 600 mg PO Q8HR PRN #30 tab 07/10/23 [Rx] Simethicone [Gas-X] 125 mg PO AC-TID PRN #20 capsule 07/10/23 [Rx] Follow up Appointment(s)/Referral(s): Laura Palomino MD [STAFF PHYSICIAN] - 07/14/23 5:00 pm (TELEHEALTH - DR WILL CALL YOU BETWEEN 9 am to 8 pm) Patient Instructions/Handouts: *Surgery [facility] - (Anesthesia) Discharge Instructions Outpatient Surgery, Laparoscopic Appendectomy (GEN) Activity/Diet/Wound Care/Special Instructions: TELEHEALTH - DR WILL CALL YOU BETWEEN 9 am to 8 pm No lifting over 10 pounds in 2 weeks until July 23July shower. No bath tub soaks for two weeks until July 23 Diet as tolerated. Use Tylenol, simethicone and ibuprofen or Aleve scheduled for the next 24-48 hours for best pain relief. Use ice along incisions for today to prevent swelling. Discharge Disposition: HOME SELF-CARE
[2023-07-10 15:42] VITALS: BP 108/57; PULSE 86
--- NOTE | 2023-07-13 12:56 | P.PN ---
Progress Note - Text Progress Note Date: 07/13/23 Patient contacted via telephone. She reports moderate improvement of her pain. She went back to work today less than 3 days from her surgery. Time of conversation 3 minutes. Patient will stop by the office to obtain her images. Pathology still pending at this time. All questions were addressed. Appropriate bruising. Lifting restrictions of 10 pounds for 2 weeks until July 23 reinforced.
== END 2023-07-10 15:34 | disposition home or self-care (01) ==
LOC: EDSEX → OR 09:57
PROVIDERS: ATTEND Surgery Plastic and Reconstructive Surgery
DX: K35.32 Acute appendicitis with perforation, localized peritonitis, and gangrene, without abscess (principal); E66.01 Morbid (severe) obesity due to excess calories; F32.A Depression, unspecified; F41.1 Generalized anxiety disorder; F43.10 Post-traumatic stress disorder, unspecified; F44.81 Dissociative identity disorder; I11.9 Hypertensive heart disease without heart failure; N73.6 Female pelvic peritoneal adhesions (postinfective); Z68.38 Body mass index [BMI] 38.0-38.9, adult; Z79.899 Other long term (current) drug therapy; Z88.1 Allergy status to other antibiotic agents
CPT/HCPCS: 44970; S2900; 80053; 85025; 88304